=== PATIENT | female | born 1955 | race American Indian/Alaskan Native ===

== ENCOUNTER 2016-07-10 15:40 | Outpatient (CLI) | payer OTHER ==
--- NOTE | 2016-07-10 17:11 | Vascular Lab Report ---
LOWER EXTREMITY VENOUS DUPLEX: REASON FOR EXAM: Pain of the lower extremities. COMMENTS ON THE RIGHT: All veins visualized are freely compressible without evidence of internal echogenicity. Flow is spontaneous and phasic throughout. COMMENTS ON THE LEFT: All veins visualized are freely compressible without evidence of internal echogenicity. Flow is spontaneous and phasic throughout. IMPRESSION: No evidence of acute or chronic deep venous thrombosis in either lower extremity.
== END 2016-07-10 15:41 | disposition home or self-care (01) ==
LOC: VAS 15:40
PROVIDERS: ATTEND Podiatrist Foot & Ankle Surgery
DX: M79.662 Pain in left lower leg (principal); M79.661 Pain in right lower leg; M79.89 Other specified soft tissue disorders
CPT/HCPCS: 93970

== ENCOUNTER 2019-04-15 08:13 | Outpatient (CLI) | payer OTHER ==
--- NOTE | 2019-04-15 09:55 | Vascular Lab Report ---
DUPLEX DOPPLER LOWER EXTREMITY VEINS, BILATERAL INDICATION: M79.89 Other specified soft tissue disorders/M79.662 Pain in left. TECHNIQUE: Duplex doppler imaging was performed through the veins of both lower extremities using venous brodie sallie and other maneuvers. COMPARISON: None available. FINDINGS: Right Common Femoral vein: Negative. Right Femoral vein: Negative. Right Popliteal vein: Negative. Right Calf veins: Negative. Left Common Femoral vein: Negative. Left Femoral vein: Negative. Left Popliteal vein: Negative. Left Calf veins: Negative. Additional findings: None. IMPRESSION: 1. No sonographic evidence for DVT in either lower extremity. Signer Name: Simeon Palafox MD Signed: 04/15/2019 9:51 AM Workstation Name: [id number]
== END 2019-04-15 08:14 | disposition home or self-care (01) ==
LOC: VAS 08:13
PROVIDERS: ATTEND Podiatrist Foot & Ankle Surgery
DX: M79.662 Pain in left lower leg (principal); M79.89 Other specified soft tissue disorders
CPT/HCPCS: 93970